=== PATIENT | male | born 1990 | race Caucasian/White ===

== ENCOUNTER 2020-03-05 07:18 | Emergency (ER) | payer BC ==
[~2020-03-05] VITALS: Ht 193 cm; Wt 104.5 kg
--- NOTE | 2020-03-05 08:29 | NUR ---
NAUSEA AND VOMITING EVERY MORNING SINCE OCTOBER, CAME IN THIS MORNING FOR NEW ONSET ABD PAIN.
[2020-03-05] MEDS ORDERED: famotidine/PF 10 mg/ml inj IV ONE (08:50)
[2020-03-05] MEDS ORDERED: metoclopramide 5 mg/ml inj IV ONE (08:50)
[2020-03-05] MEDS ORDERED: normal saline 1000ML IV soln IVB ONE (08:50)
[2020-03-05 09:42] VITALS: BP 110/81
[2020-03-05 09:44] LABS: BASOPHILS % (AUTO) 0.8 % (0-1); EOSINOPHILS # (AUTO) 0.2 X10'3 (0-0.9); EOSINOPHILS % (AUTO) 3.3 % (0-6); HEMATOCRIT 43.8 % (42.0-52.0); HEMOGLOBIN 14.6 g/dl (14.0-17.9); LYMPHOCYTES # (AUTO) 1.7 X10'3 (1.1-4.8); MEAN CORPUSCULAR HEMOGLOBIN 30.5 PG (27.0-31.0); MEAN CORPUSCULAR HGB CONC 33.4 g/dL (33.0-36.5); MEAN CORPUSCULAR VOLUME 91.5 FL (78-98); MEAN PLATELET VOLUME 9.8 FL (7.4-10.4); MONOCYTES # (AUTO) 0.4 X10'3 (0-0.9); MONOCYTES % (AUTO) 8.7 % (2-12); NEUTROPHILS # (AUTO) 2.5 X10'3 (1.8-7.7); NEUTROPHILS % (AUTO) 51.2 % (42-75); PLATELET COUNT 243 X10'3 (140-440); RED BLOOD COUNT 4.78 X10'6 (4.70-6.10); RED CELL DISTRIBUTION WIDTH 12.6 % (11.5-14.5); WHITE BLOOD COUNT 4.8 X10'3 (4.5-11.0)
[2020-03-05 09:57] LABS: ALANINE AMINOTRANSFERASE 51 U/L (12-78); ALBUMIN 3.9 G/DL (3.4-5.0); ALBUMIN/GLOBULIN RATIO 1.1 (1.1-1.5); ALKALINE PHOSPHATASE 52 IU/L (46-116); ANION GAP 5 (8-16); ASPARTATE AMINO TRANSFERASE 24 U/L (10-37); BILIRUBIN,TOTAL 0.3 MG/DL (0.1-1.0); BLOOD UREA NITROGEN 14 MG/DL (7-18); BUN/CREATININE RATIO 14.4 (5.4-32.0); CALCIUM 9.1 MG/DL (8.5-10.1); CHLORIDE 104 MMOL/L (99-107); CREATININE 0.97 MG/DL (0.60-1.10); GLUCOSE 98 MG/DL (70-104); LIPASE 174 U/L (73-393); POTASSIUM 4.1 MMOL/L (3.5-5.1); SODIUM 139 MMOL/L (135-145); TOTAL CARBON DIOXIDE 29.7 MMOL/L (24-32); TOTAL PROTEIN 7.3 G/DL (6.4-8.2); eGFR > 90 ML/MIN
[2020-03-05] MEDS ORDERED: PANT-47 PO (10:01)
[2020-03-05] MEDS ORDERED: ONDA4TAB6 PO (10:01)
[2020-03-05 10:06] LABS: CLARITY,URINE CLEAR (Clear); COLOR,URINE STRAW (Yellow); GLUCOSE, URINE NEGATIVE (Neg); KETONES,URINE NEGATIVE (Neg); LEUKOCYTE ESTERASE ,URINE NEGATIVE (Neg); NITRITES, URINE NEGATIVE (Neg); OCCULT BLOOD,URINE TRACE-INTACT (Neg); PH,URINE 6.5 (4.8-8.0); PROTEIN,URINE NEGATIVE (Neg); UROBILINOGEN,URINE 0.2 E.U/dL (0.2-1.0)
[2020-03-05 10:07] LABS: UA COLLECTION TYPE CLN CATCH MIDSTREAM
[2020-03-05 10:12] LABS: SQUAMOUS EPITHELIAL CELL,UR FEW /LPF (FEW)
[2020-03-05 10:13] LABS: BACTERIA,URINE FEW /HPF (Neg); RBC,URINE 0-2 /HPF (0-2); WBC,URINE 0-4 /HPF (0-4)
--- NOTE | 2020-03-05 10:46 | NUR ---
PT STATES HE IS FEELING MUCH BETTER.
== END 2020-03-05 10:49 | disposition home or self-care (01) ==
LOC: ER 07:19
DX: R10.13 Epigastric pain (principal); R11.2 Nausea with vomiting, unspecified; F41.9 Anxiety disorder, unspecified; F32.9 Major depressive disorder, single episode, unspecified; Z79.899 Other long term (current) drug therapy
CPT/HCPCS: 36415; 80053; 81001; 83690; 85025; 85610; 86885; 86900; 86901; 96361; 96374; 96375; 99284; J2765; J3490; J7030

== ENCOUNTER 2020-09-02 06:22 | Emergency (ER) | payer BC, MEDICAID ==
[~2020-09-02 06:22] MED LIST: ONDA4TAB6 PO; PANT-47 PO
--- NOTE | 2020-09-02 06:32 | NUR ---
Called to triage for second time, not in lobby
--- NOTE | 2020-09-02 06:45 | NUR ---
Called to triage a third time, not in lobby
== END 2020-09-02 06:46 | disposition left against medical advice (07) ==
LOC: ER 06:22
DX: R11.0 Nausea (principal); Z53.21 Procedure and treatment not carried out due to patient leaving prior to being seen by health care provider